=== PATIENT | male | born 1965 | race Caucasian/White ===

== ENCOUNTER 2016-04-29 05:55 | Emergency (ER) | payer BC ==
--- NOTE | 2016-04-29 06:26 | Emergency Department Record ---
History of Present Illness - General Chief Complaint: Back Pain/Injury Stated Complaint: BACK PAIN Time Seen by Provider: 04/29/16 06:22 Source: Patient Mode of Arrival: Ambulatory Limitations: No limitations - History of Present Illness Initial Comments: 50 yo male presents to ED with a CC of right sided low back pain that has been radiating down the right leg for approximately 3 weeks. Patient denies fevers, chills, history of IVDA, urinary retention, or lower extremity weakness on examination. Patient does report that the lower extremity "gives out" intermittently. Patient reports having an MRI ordered by Dr. Bonilla but has not been able to get the imaging scheduled due to insurance issues. Patient was also prescribed [place] 5 mg that have not been helping much, but he is out of those now. MD Complaint: Back pain Onset/Timin -: Week(s) Similar Symptoms Previously: Yes Radiation: Right leg Severity scale (1-10): 10 Quality: Burning, Stabbing, Tingling Consistency: Constant Improves With: None Worsens With: Movement, Walking Context: Unknown Associated Symptoms: Denies other symptoms Treatments Prior to Arrival: Heat therapy, Prescription analgesics Treatment Prior to Arrival Comment:: [place]. - Related Data Home Medications Medication Instructions Recorded Confirmed Last Taken Metformin HCl 1,000 mg PO BID 10/11/13 04/29/16 04/28/16 Dextroamphetamine/Amphetamine 30 mg PO BID 04/29/16 04/29/16 04/28/16 [Dextroamp-Amphetamin 30 mg Tab] Dulaglutide [Trulicity] 0.75 mg SQ WEEKLY 04/29/16 04/29/16 04/22/16 Hydrocodone/Acetaminophen [[place] 1 tab PO Q6H PRN 04/29/16 04/29/16 04/29/16 5mg/325mg] Ranitidine HCl [Acid Control] 150 mg PO DAILY 04/29/16 04/29/16 Unknown Previous Rx's Medication Instructions Recorded Diazepam [Valium] 5 mg PO Q8H #15 tab 04/29/16 Hydrocodone/Acetaminophen [[place] 1 tab PO Q6H PRN #15 tab 04/29/16 7.5mg/325mg] Allergies Allergy/AdvReac Type Severity Reaction Status Date / Time Penicillins Allergy RASH Verified 10/11/13 21:18 Travel Screening - Travel/Exposure Within Last 30 Days Have you traveled within the last 30 days?: No - Travel/Exposure Within Last Year Have you traveled outside the [place] in the last year?: No - Additonal Travel Details Have you been exposed to anyone with a communicable illness?: No Review of Systems Constitutional: Denies: Chills, Fever, Malaise, Night sweats Eyes: Denies: Eye discharge, Eye pain ENT: Denies: Congestion, Ear pain, Epistaxis Respiratory: Denies: Cough, Dyspnea Cardiovascular: Denies: Chest pain, Dyspnea on exertion Endocrine: Denies: Fatigue, Heat or cold intolerance Gastrointestinal: Denies: Abdominal pain, Nausea, Vomiting Genitourinary: Denies: Incontinence, Retention Musculoskeletal: Reports: Back pain. Denies: Arthralgia, Gout, Joint swelling Skin: Denies: Bruising, Change in color Neurological: Denies: Abnormal gait, Confusion, Headache, Seizure Psychiatric: Denies: Anxiety Hematological/Lymphatic: Denies: Anemia, Blood Clots Past Medical History - SOCIAL HISTORY Smoking Status: Current every day smoker Alcohol Use: None Drug Use: None - RESPIRATORY Hx Respiratory Disorders: No - CARDIOVASCULAR Hx Cardio Disorders: No - NEURO Hx Neuro Disorders: No - GI Hx GI Disorders: No - Hx Genitourinary Disorders: No - ENDOCRINE Hx Endocrine Disorders: Yes Hx Diabetes: Yes Hx Thyroid Disease: No - MUSCULOSKELETAL Hx Musculoskeletal Disorders: No - PSYCH Hx Psych Problems: Yes Comment:: ADHD - HEMATOLOGY/ONCOLOGY Hx Hematology/Oncology Disorders: No Family Medical History Any Significant Family History?: No Hx Dementia: Mother Hx Heart Disease: Father Physical Exam - General General Appearance: Alert, Oriented x3, Cooperative, Mild distress Limitations: No limitations - Head Head exam: Atraumatic, Normocephalic, Normal inspection Head exam detail: negative: Abrasion, Contusion, Rosario's sign, General tenderness, Hematoma, Laceration - Eye Eye exam: Normal appearance. negative: Conjunctival injection, Periorbital swelling, Periorbital tenderness, Scleral icterus - ENT Ear exam: negative: Auricular hematoma, Auricular trauma Nasal Exam: negative: Active bleeding, Discharge, Dried blood, Foreign body Mouth exam: negative: Drooling, Laceration, Muffled voice, Tongue elevation - Neck Neck exam: Normal inspection. negative: Meningismus, Tenderness - Respiratory Respiratory exam: Normal lung sounds bilaterally. negative: Respiratory distress, Rhonchi, Stridor, Wheezes - Cardiovascular Cardiovascular Exam: Regular rate, Normal rhythm, Normal heart sounds - GI/Abdominal GI/Abdominal exam: Soft. negative: Distended, Rebound, Rigid, Tenderness - Rectal Rectal exam: Deferred - exam: Deferred - Extremities Extremities exam: Normal inspection, Other (EHL/dorsiflexion/plantar flexion are intact distally and 5/5, patellar reflexes 1+ bilaterally). negative: Calf tenderness, Pedal edema, Tenderness - Back Back exam: Reports: Paraspinal tenderness - Neurological Neurological exam: Alert, Normal gait, Oriented X3 - Psychiatric Psychiatric exam: Normal affect, Normal mood - Skin Skin exam: Normal color. negative: Abrasion Type of lesion: negative: abrasion Course Vital Signs 04/29/16 05:55 Temperature 98.0 F Pulse Rate 94 H Respiratory 16 Rate Blood Pressure 136/97 Pulse Ox 98 - Reevaluation(s) Reevaluation #1: 04/29/16 06:32 Patient was seen and examined, reports worsening pain symptoms despite [place] prescribed by his PCP. Patient no risk factors for epidural abscess other than type II DM, denies fevers, chills, or traumatic injury to the back. Patient has no historical features consistent with acute spinal cord compression and his physical examination fails to identify any distal lower extremity weakness on examination. Will prescribe [place] 7.5 as as well as Valium for his symptoms until his MRI imaging can be completed hopefully later this week. Patient appears stable for discharge at this time. Disposition Disposition: Discharge Clinical Impression: Sciatica of right side Disposition: Home, Self-Care Return To Work/School Note Provided: Yes Condition: (2) Stable Instructions: Sciatica (ED) Additional Instructions: Return to ED if your symptoms worsen or if you have any concerns. Valium and [place] as directed. Follow-up with Dr. Bonilla in 3-5 days as directed. Prescriptions: Hydrocodone/Acetaminophen [[place] 7.5mg/325mg] 1 tab PO Q6H PRN #15 tab PRN Reason: Pain - General Diazepam [Valium] 5 mg PO Q8H #15 tab Forms: Patient Portal Access, Return to Work/School Time of Disposition: 06:35
== END 2016-04-29 06:36 | disposition home or self-care (01) ==
LOC: ER 05:55
DX: M54.41 Lumbago with sciatica, right side (principal); E11.9 Type 2 diabetes mellitus without complications; Z79.84 Long term (current) use of oral hypoglycemic drugs
CPT/HCPCS: 99282

== ENCOUNTER 2016-05-03 15:55 | Emergency (ER) | payer BC ==
--- NOTE | 2016-05-03 16:39 | Emergency Department Record ---
History of Present Illness - General Chief Complaint: Back Pain/Injury Stated Complaint: BACK PAIN Time Seen by Provider: 05/03/16 16:30 Source: Patient Mode of Arrival: Ambulatory Limitations: No limitations - History of Present Illness Initial Comments: 50 yo presents with back pain. He has had the pain for several weeks. He has follow up with his doctor and had an MRI. He is planning physical therapy as well. He has times has pain in his right leg as well. He feels a burning. No weakness or changes in bowel or bladder function. He was given Tramadol but this causes nausea and vomiting. MD Complaint: Back pain Onset/Timin -: Month(s) Similar Symptoms Previously: Yes Place: Home, Work Severity: Moderate Severity scale (1-10): 8 Quality: Aching, Burning Consistency: Constant Worsens With: Movement, Walking Context: Unknown Treatments Prior to Arrival: Other medications, Prescription analgesics - Related Data Home Medications Medication Instructions Recorded Confirmed Last Taken Metformin HCl 1,000 mg PO BID 10/11/13 05/03/16 1 Day Ago Dextroamphetamine/Amphetamine 30 mg PO BID 04/29/16 05/03/16 1 Day Ago [Dextroamp-Amphetamin 30 mg Tab] Dulaglutide [Trulicity] 0.75 mg SQ WEEKLY 04/29/16 05/03/16 1 Day Ago Ranitidine HCl [Acid Control] 150 mg PO DAILY 04/29/16 05/03/16 1 Day Ago Tramadol HCl [Ultram] 50 mg PO Q8H 05/03/16 05/03/16 1 Day Ago Previous Rx's Medication Instructions Recorded Diazepam [Valium] 5 mg PO Q8H #25 tab 05/03/16 Hydrocodone/Acetaminophen [[place] 1 tab PO Q8H PRN #20 tab 05/03/16 7.5mg/325mg] Ondansetron [Zofran Odt] 4 mg PO Q8H #20 tab.rapdis 05/03/16 Allergies Allergy/AdvReac Type Severity Reaction Status Date / Time Penicillins Allergy RASH Verified 05/03/16 16:11 Travel Screening - Travel/Exposure Within Last 30 Days Have you traveled within the last 30 days?: No - Travel/Exposure Within Last Year Have you traveled outside the [place] in the last year?: No - Additonal Travel Details Have you been exposed to anyone with a communicable illness?: No - Travel Symptoms Symptom Screening: None Review of Systems Constitutional: Denies: Chills, Fever, Malaise, Night sweats, Weakness Eyes: Denies: Eye discharge ENT: Denies: Congestion Respiratory: Denies: Cough, Dyspnea, Hemoptysis, Stridor, Wheezes Cardiovascular: Denies: Chest pain, Palpitations, Syncope Endocrine: Denies: Fatigue Gastrointestinal: Reports: Nausea, Vomiting. Denies: Abdominal pain, Diarrhea Genitourinary: Denies: Dysuria, Frequency, Hematuria, Retention, Testicular pain , Urgency Musculoskeletal: Reports: Back pain. Denies: Arthralgia, Joint swelling, Myalgia, Neck pain Skin: Denies: Change in color, Rash Neurological: Denies: Headache Psychiatric: Denies: Anxiety Hematological/Lymphatic: Denies: Blood Clots, Easy bleeding, Easy bruising, Swollen glands Past Medical History - SOCIAL HISTORY Smoking Status: Current every day smoker Alcohol Use: None Drug Use: None - RESPIRATORY Comment:: colapsed lung - CARDIOVASCULAR Hx Cardio Disorders: No - NEURO Hx Neuro Disorders: No - GI Hx GI Disorders: No - Hx Genitourinary Disorders: No - ENDOCRINE Hx Endocrine Disorders: Yes Hx Diabetes: Yes Hx Thyroid Disease: No - MUSCULOSKELETAL Hx Musculoskeletal Disorders: No - PSYCH Hx Psych Problems: Yes Comment:: ADHD - HEMATOLOGY/ONCOLOGY Hx Hematology/Oncology Disorders: No Family Medical History Any Significant Family History?: Yes Hx Dementia: Mother Hx Heart Disease: Father Physical Exam - General General Appearance: Alert, Oriented x3, Cooperative, No acute distress Limitations: No limitations - Head Head exam: Normal inspection - Eye Eye exam: Normal appearance. negative: Conjunctival injection - ENT ENT exam: Normal exam Ear exam: Normal external inspection Nasal Exam: Normal inspection Mouth exam: Normal external inspection - Neck Neck exam: Normal inspection. negative: Tenderness - Respiratory Respiratory exam: Normal lung sounds bilaterally. negative: Respiratory distress - Cardiovascular Cardiovascular Exam: Regular rate, Normal rhythm, Normal heart sounds Peripheral Pulses: 2+: Radial (R) - GI/Abdominal GI/Abdominal exam: Soft. negative: Distended, Guarding, Tenderness - Rectal Rectal exam: Normal rectal tone. negative: Tenderness - Extremities Extremities exam: Normal inspection, Full ROM, Normal capillary refill. negative: Joint swelling, Pedal edema, Tenderness - Back Back exam: Reports: Muscle spasm, Tenderness, Vertebral tenderness, Other (EHL intact full, Foot flexion intact, foot extension intact full strength) Image of Body Front/Back: 1 - tender to palpation, normal inspection, pain with SLR in the back to the knee - Neurological Neurological exam: Alert, Normal gait, Oriented X3, Reflexes normal. negative: Altered, Motor sensory deficit - Psychiatric Psychiatric exam: Normal affect, Normal mood. negative: Agitated, Anxious - Skin Skin exam: Dry, Intact, Normal color, Warm Course Vital Signs 05/03/16 15:58 Temperature 98.4 F Pulse Rate 92 H Respiratory 16 Rate Blood Pressure 168/100 Pulse Ox 98 - Reevaluation(s) Reevaluation #1: the patient seen and examined No motor weakness He has reproducible pain in the lumbar area Normal rectal tone 05/03/16 16:42 Disposition Disposition: Discharge Clinical Impression: Sciatica of right side Instructions: Sciatica (ED) Additional Instructions: Follow up with Dr Bonilla first of the week Return if worse, weak or any new concerns Stop the Tramadol given it makes you nauseated Prescriptions: Hydrocodone/Acetaminophen [[place] 7.5mg/325mg] 1 tab PO Q8H PRN #20 tab PRN Reason: Pain - General Diazepam [Valium] 5 mg PO Q8H #25 tab Ondansetron [Zofran Odt] 4 mg PO Q8H #20 tab.rapdis Forms: Patient Portal Access Time of Disposition: 16:43
== END 2016-05-03 17:03 | disposition home or self-care (01) ==
LOC: ER 15:55
DX: M54.41 Lumbago with sciatica, right side (principal)
CPT/HCPCS: 99282

== ENCOUNTER 2016-05-13 06:06 | Emergency (ER) | payer BC ==
--- NOTE | 2016-05-13 06:39 | Emergency Department Record ---
History of Present Illness - General Chief Complaint: Back Pain/Injury Time Seen by Provider: 05/13/16 06:36 Source: Patient Mode of Arrival: Ambulatory Limitations: No limitations - History of Present Illness Initial Comments: 50 yo male returns to ED with a CC of continued right lower back pain radiating down his RLE. Patient recently underwent MRI of the lumbar spine for his symptoms revealing a "bulging disc", and has been attending physical therapy. Patient has been taking [place] and Valium for his pain symptoms with some relief , but is out of his pain mediations currently. Patient denies urinary retention symptoms, numbness, or weakness to the RLE. MD Complaint: Back pain Onset/Timin -: Week(s) Similar Symptoms Previously: Yes Radiation: Right leg Severity scale (1-10): 8 Quality: Burning Consistency: Constant Improves With: None Worsens With: None Context: Unknown Associated Symptoms: Denies other symptoms Treatments Prior to Arrival: Prescription analgesics - Related Data Home Medications Medication Instructions Recorded Confirmed Last Taken Metformin HCl 1,000 mg PO BID 10/11/13 05/13/16 05/12/16 Dextroamphetamine/Amphetamine 30 mg PO BID 04/29/16 05/13/16 05/12/16 [Dextroamp-Amphetamin 30 mg Tab] Dulaglutide [Trulicity] 0.75 mg SQ WEEKLY 04/29/16 05/13/16 05/12/16 Ranitidine HCl [Acid Control] 150 mg PO DAILY 04/29/16 05/13/16 05/12/16 Previous Rx's Medication Instructions Recorded Diazepam [Valium] 5 mg PO Q8H #25 tab 05/03/16 Hydrocodone/Acetaminophen [[place] 1 tab PO Q8H PRN #20 tab 05/03/16 7.5mg/325mg] Ondansetron [Zofran Odt] 4 mg PO Q8H #20 tab.rapdis 05/03/16 Diazepam [Valium] 5 mg PO Q8H #10 tab 05/13/16 Naproxen [Naprosyn] 250 mg PO Q12H #20 tablet 05/13/16 Allergies Allergy/AdvReac Type Severity Reaction Status Date / Time Penicillins Allergy RASH Verified 05/03/16 16:11 Travel Screening - Travel/Exposure Within Last 30 Days Have you traveled within the last 30 days?: No - Travel/Exposure Within Last Year Have you traveled outside the [place] in the last year?: No - Additonal Travel Details Have you been exposed to anyone with a communicable illness?: No - Travel Symptoms Symptom Screening: None Review of Systems Constitutional: Denies: Chills, Fever, Malaise, Night sweats Eyes: Denies: Eye discharge, Eye pain ENT: Denies: Congestion, Ear pain Respiratory: Denies: Cough, Dyspnea Cardiovascular: Denies: Chest pain, Dyspnea on exertion, Palpitations Endocrine: Denies: Fatigue, Heat or cold intolerance Gastrointestinal: Denies: Abdominal pain, Nausea, Vomiting Genitourinary: Denies: Incontinence, Retention Musculoskeletal: Reports: Back pain. Denies: Arthralgia, Gout, Joint swelling Skin: Denies: Bruising, Change in color Neurological: Denies: Abnormal gait, Confusion, Headache, Seizure Psychiatric: Denies: Anxiety Hematological/Lymphatic: Denies: Anemia, Blood Clots Past Medical History - SOCIAL HISTORY Smoking Status: Current every day smoker - RESPIRATORY Hx Respiratory Disorders: No Comment:: colapsed lung - CARDIOVASCULAR Hx Cardio Disorders: No - NEURO Hx Neuro Disorders: No - GI Hx GI Disorders: No - Hx Genitourinary Disorders: No - ENDOCRINE Hx Endocrine Disorders: Yes Hx Diabetes: Yes Hx Thyroid Disease: No - MUSCULOSKELETAL Hx Musculoskeletal Disorders: No - PSYCH Hx Psych Problems: Yes Comment:: ADHD - HEMATOLOGY/ONCOLOGY Hx Hematology/Oncology Disorders: No Family Medical History Any Significant Family History?: No Hx Dementia: Mother Hx Heart Disease: Father Physical Exam - General General Appearance: Alert, Oriented x3, Cooperative, No acute distress, Other ( resting comfortably on examination, no weakness to the RLE on examination, able to stand and ambulate with steady gait) Limitations: No limitations - Head Head exam: Atraumatic, Normocephalic, Normal inspection Head exam detail: negative: Abrasion, Contusion, Rosario's sign, General tenderness, Hematoma, Laceration - Eye Eye exam: Normal appearance. negative: Conjunctival injection, Periorbital swelling, Periorbital tenderness, Scleral icterus - ENT Ear exam: negative: Auricular hematoma, Auricular trauma Nasal Exam: negative: Active bleeding, Discharge, Dried blood, Foreign body Mouth exam: negative: Drooling, Laceration, Muffled voice, Tongue elevation - Neck Neck exam: Normal inspection. negative: Meningismus, Tenderness - Respiratory Respiratory exam: Normal lung sounds bilaterally. negative: Respiratory distress, Rhonchi, Stridor, Wheezes - Cardiovascular Cardiovascular Exam: Regular rate, Normal rhythm, Normal heart sounds - GI/Abdominal GI/Abdominal exam: Soft. negative: Rebound, Rigid, Tenderness - Rectal Rectal exam: Deferred - exam: Deferred - Extremities Extremities exam: negative: Joint swelling, Pedal edema, Tenderness - Back Back exam: Reports: Paraspinal tenderness. Denies: CVA tenderness (R), CVA tenderness (L) - Neurological Neurological exam: Alert, Normal gait, Oriented X3 - Psychiatric Psychiatric exam: Normal affect, Normal mood - Skin Skin exam: Normal color. negative: Abrasion Type of lesion: negative: abrasion Course Vital Signs 05/13/16 06:09 Temperature 97.7 F Pulse Rate 100 H Respiratory 16 Rate Blood Pressure 122/75 Pulse Ox 99 - Reevaluation(s) Reevaluation #1: 05/13/16 06:45 MAPS reviewed: Patient has filled #50 [place] tablets and #30 Ultram tablets since 04/24/16 Patient has also filled #40 Valium tablets since 04/29/15. Given the patient's ongoing symptoms and recent MRI with Dr. Bonilla, patient was instructed to follow-up with Dr. Bonilla today without fail. Further treatment with Narcotic pain medication is not indicated from the ED, will prescribe Valium #10 and Naprosyn with instructions that further pain medications will need to be managed by Dr. Bonilla. Patient verbalizes understanding, and appears stable of discharge at this time. Patient has no clinical evidence for spinal cord compression on examination. Disposition Disposition: Discharge Clinical Impression: Sciatica of right side Disposition: Home, Self-Care Condition: (2) Stable Instructions: Sciatica (ED) Additional Instructions: Return to ED if your symptoms worsen or if you have any concerns. Follow-up with Dr. Bonilla today without fail. Valium as directed. Prescriptions: Naproxen [Naprosyn] 250 mg PO Q12H #20 tablet Diazepam [Valium] 5 mg PO Q8H #10 tab Forms: Patient Portal Access Time of Disposition: 06:39
== END 2016-05-13 06:46 | disposition home or self-care (01) ==
LOC: ER 06:06
DX: M54.41 Lumbago with sciatica, right side (principal)
CPT/HCPCS: 99282

== ENCOUNTER 2016-06-07 09:48 | Emergency (ER) | payer BC ==
--- NOTE | 2016-06-07 10:20 | Emergency Department Record ---
History of Present Illness - General Chief complaint: Pain Stated complaint: RT HIP PAIN/NEEDS MEDICATION Time Seen by Provider: 06/07/16 10:08 Source: Patient, Family Mode of Arrival: Ambulatory - History of Present Illness Initial comments: 51 yo male presents with back pain. He has ongoing right lower back pain that radiates down his right leg. He has seen Dr Mckeon, had MRI's, and attended physical therapy. He is has seen his PCP as well trying to diagnose the pain and figure out why he has right sided muscle wasting. The pain starts in the glutteal area and wraps to the thigh. Onset/Timin -: Month(s) Location: Right, Other Radiation: Distal Severity scale (1-10): 8 Quality: Burning, Other Improves with: Medication Worsens with: Nothing Associated Symptoms: Denies other symptoms - Related Data Home Medications Medication Instructions Recorded Confirmed Last Taken Metformin HCl 1,000 mg PO BID 10/11/13 05/13/16 06/07/16 Dextroamphetamine/Amphetamine 30 mg PO BID 04/29/16 05/13/16 06/07/16 [Dextroamp-Amphetamin 30 mg Tab] Dulaglutide [Trulicity] 0.75 mg SQ WEEKLY 04/29/16 05/13/16 1 Week Ago Ranitidine HCl [Acid Control] 150 mg PO DAILY 04/29/16 05/13/16 1 Day Ago Paroxetine HCl [Paroxetine HCl] 10 mg PO QHS 06/07/16 06/07/16 1 Day Ago Previous Rx's Medication Instructions Recorded Hydrocodone/Acetaminophen [[place] 1 tab PO Q8H PRN #20 tab 05/03/16 7.5mg/325mg] Naproxen [Naprosyn] 250 mg PO Q12H #20 tablet 05/13/16 Diazepam [Valium] 5 mg PO Q8H #20 tab 06/07/16 Gabapentin [Neurontin] 300 mg PO BID #30 capsule 06/07/16 Naproxen [Naprosyn] 500 mg PO Q12H #60 tab. 06/07/16 Allergies Allergy/AdvReac Type Severity Reaction Status Date / Time Penicillins Allergy RASH Verified 06/07/16 09:53 Travel Screening - Travel/Exposure Within Last 30 Days Have you traveled within the last 30 days?: No - Travel/Exposure Within Last Year Have you traveled outside the [place] in the last year?: No - Additonal Travel Details Have you been exposed to anyone with a communicable illness?: No - Travel Symptoms Symptom Screening: None Review of Systems Constitutional: Denies: Chills, Fever, Malaise, Weakness Eyes: Denies: Eye discharge ENT: Denies: Congestion, Throat pain Respiratory: Denies: Cough Cardiovascular: Denies: Chest pain, Palpitations, Syncope Endocrine: Denies: Fatigue Gastrointestinal: Denies: Abdominal pain, Nausea, Vomiting Genitourinary: Denies: Dysuria, Hematuria, Retention, Urgency Musculoskeletal: Reports: As per HPI, Arthralgia, Back pain, Myalgia Skin: Denies: Bruising, Change in color, Rash Neurological: Denies: Headache Psychiatric: Denies: Anxiety Hematological/Lymphatic: Denies: Blood Clots, Easy bleeding, Easy bruising, Swollen glands Past Medical History - SOCIAL HISTORY Smoking Status: Current every day smoker - RESPIRATORY Hx Respiratory Disorders: No Comment:: colapsed lung - CARDIOVASCULAR Hx Cardio Disorders: No - NEURO Hx Neuro Disorders: No - GI Hx GI Disorders: No - Hx Genitourinary Disorders: No - ENDOCRINE Hx Endocrine Disorders: Yes Hx Diabetes: Yes Hx Thyroid Disease: No - MUSCULOSKELETAL Hx Musculoskeletal Disorders: No - PSYCH Hx Psych Problems: Yes Comment:: ADHD - HEMATOLOGY/ONCOLOGY Hx Hematology/Oncology Disorders: No Family Medical History Any Significant Family History?: Yes Hx Dementia: Mother Hx Heart Disease: Father Physical Exam - General General Appearance: Alert, Oriented x3, Cooperative, No acute distress Limitations: No limitations - Head Head exam: Normal inspection - Eye Eye exam: Normal appearance - ENT ENT exam: Normal exam Ear exam: Normal external inspection Nasal Exam: Normal inspection Mouth exam: Normal external inspection - Neck Neck exam: Normal inspection, Full ROM. negative: Tenderness - Respiratory Respiratory exam: Normal lung sounds bilaterally. negative: Respiratory distress - Cardiovascular Cardiovascular Exam: Regular rate, Normal rhythm, Normal heart sounds Peripheral Pulses: 2+: Radial (R) - GI/Abdominal GI/Abdominal exam: Soft. negative: Tenderness - Rectal Rectal exam: Deferred - exam: Deferred - Extremities Extremities exam: Full ROM, Normal capillary refill. negative: Normal inspection (mild right sided thigh atrophy compared to the left), Calf tenderness, Pedal edema, Tenderness - Back Back exam: Reports: CVA tenderness (R), Muscle spasm - Neurological Neurological exam: Alert, Oriented X3, Other (Intact foot flexion and extension , EHL intact). negative: Altered, Motor sensory deficit, Reflexes normal - Psychiatric Psychiatric exam: Normal affect, Normal mood. negative: Anxious - Skin Skin exam: Dry, Intact, Normal color, Warm Course Vital Signs 06/07/16 09:59 Temperature 98.0 F Pulse Rate 107 H Respiratory 16 Rate Blood Pressure 142/89 Pulse Ox 97 - Reevaluation(s) Reevaluation #1: The EMR was reviewed 3 ED visits in 06/07/16 10:10 Reevaluation #2: The patient had an outpatient MRI today He will pursue the results Thursday We again discussed ongoing pain control will need to be through a PCP or pain specialist for narcotics Rx provided for valium, naprosyn, neurontin 06/07/16 10:25 Disposition Disposition: Discharge Clinical Impression: Sciatica of right side Disposition: Home, Self-Care Condition: (1) Good Instructions: Sciatica (ED) Prescriptions: Naproxen [Naprosyn] 500 mg PO Q12H #60 tab. Gabapentin [Neurontin] 300 mg PO BID #30 capsule Diazepam [Valium] 5 mg PO Q8H #20 tab Forms: Patient Portal Access Time of Disposition: 10:21
== END 2016-06-07 10:35 | disposition home or self-care (01) ==
LOC: ER 09:48
DX: M54.41 Lumbago with sciatica, right side (principal); M25.551 Pain in right hip; M51.16 Intervertebral disc disorders with radiculopathy, lumbar region
CPT/HCPCS: 72195; 99282

== ENCOUNTER 2017-02-01 15:19 | Emergency (ER) | payer BC ==
[2017-02-01] MEDS ORDERED: IPRATROPIUM/ALBUTEROL (0.5MG/3MG) NEB INH ONE (15:31)
[2017-02-01] MEDS ORDERED: LORAZEPAM 2 MG/ML VIAL IV ONE (15:51)
--- NOTE | 2017-02-01 16:04 | Emergency Department Record ---
History of Present Illness - General Chief Complaint: Shortness of breath Stated Complaint: KELLI,COUGH, CHEST CONGESTION Time Seen by Provider: 02/01/17 15:43 Source: Patient Mode of Arrival: Ambulatory Limitations: No limitations - History of Present Illness Initial Comments: The patient is here due to a cough and dyspnea. He states he has had a ST for a few days with a cough and then today woke up from a nap and felt like he was having trouble breathing. The dyspnea is intermittent and feels like he cannot get air in. He denies any CP, back or abdominal pain. There is no recent fever, chills, sputum production, or voice changes. The patient is a smoker but denies any hx of any similar problems. MD Complaint: Shortness of breath Onset/Timin -: Hour(s) Consistency: Intermittent Improves With: Nothing Worsens With: Coughing, Other Context: Other Treatments Prior to Arrival: None - Related Data Previous Rx's Medication Instructions Recorded Hydrocodone/Acetaminophen [[place] 1 tab PO Q8H PRN #20 tab 05/03/16 7.5mg/325mg] Naproxen [Naprosyn] 250 mg PO Q12H #20 tablet 05/13/16 Gabapentin [Neurontin] 300 mg PO BID #30 capsule 06/07/16 Naproxen [Naprosyn] 500 mg PO Q12H #60 tab. 06/07/16 Albuterol Sulfate [Proair Hfa] 2 puff IH QID PRN #1 inhaler 02/01/17 Azithromycin [Zithromax] 250 mg PO ASDIR #4 tab 02/01/17 Allergies Allergy/AdvReac Type Severity Reaction Status Date / Time Penicillins Allergy RASH Verified 06/07/16 09:53 Travel Screening - Travel/Exposure Within Last 30 Days Have you traveled within the last 30 days?: No - Travel/Exposure Within Last Year Have you traveled outside the [place] in the last year?: No - Additonal Travel Details Have you been exposed to anyone with a communicable illness?: No - Travel Symptoms Symptom Screening: None Review of Systems Constitutional: Denies: Chills, Fever Eyes: Denies: Eye discharge ENT: Reports: Congestion Respiratory: Reports: Cough, Dyspnea Past Medical History - SOCIAL HISTORY Smoking Status: Current every day smoker Alcohol Use: None Drug Use: None - RESPIRATORY Hx Respiratory Disorders: No Comment:: colapsed lung - CARDIOVASCULAR Hx Cardio Disorders: No - NEURO Hx Neuro Disorders: No - GI Hx GI Disorders: No - Hx Genitourinary Disorders: No - ENDOCRINE Hx Endocrine Disorders: Yes Hx Diabetes: Yes Hx Thyroid Disease: No - MUSCULOSKELETAL Hx Musculoskeletal Disorders: No - PSYCH Hx Psych Problems: Yes Comment:: ADHD - HEMATOLOGY/ONCOLOGY Hx Hematology/Oncology Disorders: No Family Medical History Any Significant Family History?: No Hx Dementia: Mother Hx Heart Disease: Father Physical Exam - General General Appearance: Alert, Oriented x3, Cooperative, No acute distress (The patient does appear anxious.) - Head Head exam: Atraumatic, Normocephalic - Eye Eye exam: Normal appearance, PERRL - ENT ENT exam: Normal exam, Mucous membranes moist, Normal external ear exam, Normal orophraynx, TM's normal bilaterally Throat exam: Normal inspection. negative: Tonsillar erythema, Tonsillomegaly, Tonsillar exudate - Neck Neck exam: Normal inspection, Full ROM. negative: Lymphadenopathy, Meningismus , Tenderness - Respiratory Respiratory exam: Normal lung sounds bilaterally. negative: Respiratory distress - Cardiovascular Cardiovascular Exam: Regular rate, Normal rhythm, Normal heart sounds - GI/Abdominal GI/Abdominal exam: Soft, Normal bowel sounds. negative: Tenderness - Extremities Extremities exam: Normal inspection, Full ROM, Normal capillary refill. negative: Tenderness Course Vital Signs 02/01/17 15:22 Temperature 98.3 F Pulse Rate 95 H Respiratory 32 H Rate Blood Pressure 111/70 Pulse Ox 96 - Reevaluation(s) Reevaluation #1: The patient is doing much better at this time. He has calmed down and his RR and HR are normal. He is speaking in full sentences with no difficulty with no stridor or wheezing. 02/01/17 16:09 Reevaluation #2: The patient is doing very well at this time. He feels completely back to normal after the Ativan. There is no KELLI, SOB, ST or chest pain. He is still coughing intermittently but there no longer is any stridor or bronchospastic type of sounds. I believe the patient could have been having some Laryngospasm intermittently which could have caused his symptoms. Presently he is not dyspneic with a RR of 16 and HR of 75. His RA biox is 97% and he is speaking in full sentences with no difficulty or coughing. We will treat the patient for a URI and cough medicine and have him F/U with his PCP for recheck. 02/01/17 17:00 Reevaluation #3: The patient is doing very well at this time. He is up walking with very little coughing and no KELLI or SOB. There is no CP, SOB or ST and his speech is clear and he is speaking in full sentences with no difficulty. His ambulatory biox is 96% and the patient feels well and would like to go home. 02/01/17 17:10 Medical Decision Making - Data Complexity MDM Data: Labs Ordered and/or Reviewed, X-Ray Ordered and/or Reviewed, EKG Ordered and/or Reviewed - Lab Data Result diagrams: 02/01/17 16:00 02/01/17 16:00 - EKG Data -: EKG Interpreted by Me EKG: No Acute Changes, Normal EKG (HR of 87.) - Radiology Data Radiology results: Report reviewed (CXR and ST Neck: Neg per Rad.) Disposition Disposition: Discharge Clinical Impression: Asthmatic bronchitis Qualifiers: Asthma severity: mild Asthma persistence: intermittent Asthma complication type : uncomplicated Qualified Code(s): J45.20 - Mild intermittent asthma, uncomplicated Disposition: Home, Self-Care Condition: (1) Good Instructions: Acute Bronchitis (ED) Additional Instructions: Please continue your regular medicines and take the Zpak and Albuterol as directed. Please see your PCP for re check in 2-3 days. Return to the ER for any increased cough, any trouble breathing, shortness of breath, fever, or pain. Prescriptions: Albuterol Sulfate [Proair Hfa] 2 puff IH QID PRN #1 inhaler PRN Reason: Cough And Difficulty Breathing Azithromycin [Zithromax] 250 mg PO ASDIR #4 tab Forms: Patient Portal Access Time of Disposition: 17:15 Quality - Quality Measures Quality Measures: N/A - Blood Pressure Screening View Details: Yes Does Patient Have Any of the Following: No Blood Pressure Classification: Normal BP Reading Systolic Measurement: 113 Diastolic Measurement: 73 Screening for High Blood Pressure: < Normal BP, F/U Not Required > [[id number]]
[2017-02-01 16:10] LABS: BASO % 0.1 % (0-6); EOS % 0.2 % (0-6); HEMATOCRIT 41.6 % (42.0-52.0); HEMOGLOBIN 14.4 gm/dl (14.0-18.0); LYMPH % 8.7 % (16-45); MEAN CELL VOLUME 88.9 fl (81-97); MEAN CORPUSCULAR HEMOGLOBIN 30.8 pg (27-33); MEAN CORPUSCULAR HGB CONC 34.6 g/dl (32-36); MEAN PLATELET VOLUME 9.3 fl (7.4-10.4); MONO % 5.6 % (0-9); PLATELET COUNT 281 K/uL (130-400); RED BLOOD COUNT 4.68 M/uL (4.40-5.70); RED CELL DISTRIBUTION WIDTH 13.3 % (11.5-14.5); WHITE BLOOD COUNT W/O DIFF 13.6 K/uL (4.2-12.2)
[2017-02-01 16:21] LABS: PLATELET ESTIMATE NORMAL (NORMAL)
[2017-02-01 16:28] LABS: ALB/GLOB RATIO 1.5 (1.1-1.8); ALBUMIN 4.4 g/dL (4.0-5.0); ALKALINE PHOSPHATASE 77 U/L (40-129); ALT/SGPT 23 U/L (<41); AST/SGOT 21 U/L (10.0-50.0); BLOOD UREA NITROGEN 9 mg/dL (6-20); CREATININE 0.6 mg/dL (0.7-1.2); EST GLOMERULAR FILTRATION RATE > 60 mL/min; GLUCOSE,RANDOM 182 mg/dL (74-109); TOTAL PROTEIN 7.4 g/dL (6.6-8.7)
[2017-02-01 16:41] LABS: CKMB 1.7 ng/mL (<6.73); CREATINE PHOSPHOKINASE 87 U/L (39-308)
[2017-02-01 16:42] LABS: TROPONIN I < 0.30 ng/mL (0.00-0.300)
[2017-02-01] MEDS ORDERED: AZITHROMYCIN 500 MG TABLET PO ONE (16:59)
--- NOTE | 2017-02-02 14:17 | RADIOLOGY REPORT ---
EXAM: CHEST, TWO VIEWS HISTORY: PATIENT HAS SHORTNESS OF BREATH. TECHNIQUE: Two views of the chest are provided along with the CT scan of the abdomen and pelvis dated 10/12/13. FINDINGS: The cardiomediastinal silhouette is within normal limits for size and contour. The manolo appear unremarkable. There is no radiographic evidence of a focal infiltrate or pleural effusion. No pneumothorax is noted. IMPRESSION: NO RADIOGRAPHIC EVIDENCE OF AN ACUTE INTRATHORACIC PROCESS. JOB [facility]BER: [id number] [facility]
--- NOTE | 2017-02-02 14:22 | RADIOLOGY REPORT ---
EXAM: SOFT TISSUES OF THE NECK, TWO VIEWS HISTORY: PATIENT HAS SHORTNESS OF BREATH. TECHNIQUE: Two views of the soft tissues of the neck are provided without comparison examination. FINDINGS: The osseous structures of the visualized cervical spine are unremarkable. Degenerative disk disease of the C4-C5 and C5-C6 disk space levels are noted. The prevertebral soft tissues are unremarkable. The epiglottis is unremarkable. The aryepiglottic folds are unremarkable. The visualized upper airways are unremarkable. The visualized upper lung jesus are unremarkable. IMPRESSION: UNREMARKABLE PLAIN FILM RADIOGRAPH OF THE SOFT TISSUES OF THE NECK. J[facility]: [id number] [facility]
== END 2017-02-01 17:21 | disposition home or self-care (01) ==
LOC: ER 15:19
DX: J45.20 Mild intermittent asthma, uncomplicated (principal); R06.02 Shortness of breath; E11.9 Type 2 diabetes mellitus without complications; F17.210 Nicotine dependence, cigarettes, uncomplicated
CPT/HCPCS: 99284 ×2; 96374; 82550; 82553; 84484; 80053; 85379; 85027; 71020; 70360; 94640; 93005; 93010; J2060